=== PATIENT | female | born 1960 | race Caucasian/White ===

== ENCOUNTER → 2017-06-12 | Day surgery (SDC) | payer OTHER ==
[~2017-06-12] MED LIST: ASPIR 8181 MG; BIOTIN 800 MCG1 EACH PO; BUPIVACAINE HCL 0.5% INJ 30 ML VIAL INJ ONE; CALCIUM ACETAT667 M1 PO; CEFAZOLIN SOD 2 GM/D5W 50ML 50 ML IV ONE; CRESTOR5 MG; DEXAMETHASONE SOD PHOS INJ 4 MG/ML VIAL ONE; FENTANYL CITRATE/PF 100MCG/2 ML INJ ONE; FISH OIL 1,0001 EAC2 PO; HYDROCHLOROTHIA25 MG; KETOROLAC TROMETHAMINE 30 MG/ML VIAL ONE; LIDOCAINE HCL 2% LOCAL INJ 5 ML SDV VIAL INJ ONE; MIDAZOLAM HCL 2 MG/2 ML VIAL ONE; MIMVEY 1-0.5 M1 EACH; MORPHINE SULFATE 5 MG/ML VIAL ONE; MULTI-VITAMIN1 EACH PO; NEOSTIGMINE 1 MG/ML 10ML VIAL ONE; ONDANSETRON HCL INJ 2 MG/ML VIAL ONE; PROPOFOL IV EMULSION 10 MG/ML 20 ML VIAL ONE; SEVOFLURANE INHAL SOLN 250 ML PEN BTL ONE; VIT B12 PO; VIT D PO
--- NOTE | 2017-06-12 16:33 | Operative Report ---
DATE OF PROCEDURE: PREOPERATIVE DIAGNOSES 1. Dislocated second metatarsophalangeal joint, right foot. 2. Pain, right foot. POSTOPERATIVE DIAGNOSES 1. Dislocated second metatarsophalangeal joint, right foot. 2. Pain, right foot. PROCEDURES 1. Open reduction and internal fixation with metatarsal osteotomy of the second metatarsal, right foot. 2. Use of human allograft. 3. Excision of old hardware. PATHOLOGY: Hardware sent for pathology. ANESTHESIA: General anesthetic. HEMOSTASIS: Pneumatic ankle tourniquet at 250 mmHg. ESTIMATED BLOOD LOSS: Less than 10 mL. MATERIALS: A 12 x 12 mm screw, human allograft to promote healing and to prevent adhesions. COMPLICATIONS: None. CONDITION: Stable. PROCEDURE IN DETAIL: Under mild sedation, the patient was brought to the operating room and placed on the operating table in the supine position. Following IV sedation, anesthesia was obtained with a general anesthetic. At this point, the right foot was scrubbed, prepped and draped in the usual aseptic manner. It was then exsanguinated using with an Esmarch bandage, the pneumatic ankle tourniquet was inflated to 250 mmHg, and the leg was lowered to the table. An incision was made overlying the second metatarsophalangeal joint where the dislocation of the joint was. The incision was deepened via sharp and blunt dissection, taking care to retract all cardiovascular and neurovascular structures as necessary. At this point, the capsule was then reflected off of the second metatarsal. The metatarsophalangeal joint was then freed utilizing McGlamry elevators. Utilizing standard technique, the old hardware was removed. One of the hardware heads was broken, so the area had to be trephined to remove the second screw. When both screws were removed in toto, they were sent for pathology. The area was then flushed with copious amount of normal sterile saline solution. Second metatarsal osteotomy: At this point, the second metatarsal was then osteotomized in order to decrease the contracture of the metatarsophalangeal joint, decrease the length of metatarsal, and to have the second digit to float into a more anatomical position. Osteotomy was made through and through. The first point of fixation was a 12 x 12 mm staple. There was noted to be adequate alignment clinically with the use of intraoperative fluoroscopy. A 0.062 K-wire was then used to stabilize the second point of stabilization to prevent rotation. The area was then flushed with copious amount of normal sterile saline solution. At this point, use of human allograft was then used. Human allograft was then used overlying the capsule in order to promote healing and to prevent adhesions to the area. The extensor tendon was then lengthened in order to fully decrease the contracture. The area was then flushed again with copious amounts of normal sterile saline solution. The area was then closed with 4-0 Vicryl and 4-0 nylon. Human allograft, 1 mL, was then used injectable in order to prevent adhesion and scar at the incision since this was her second surgery to that area. The area was then dressed with sterile compressive dressing consisting of Adaptic, 4 x 4's, Kerlix and an Davin bandage. The tourniquet was deflated. There was noted to be a hyperemic response to all the digits. The patient tolerated the procedure and the anesthesia well without complications, was transported to the recovery room with vital signs stable and vascular status intact. Patient will be discharged home when she meets criteria. She was given instructions to be nonweightbearing, to ice and elevate the foot while at rest, to follow up with me in the office, and to call the office if any questions, concerns or any problems arise. Job#: [id number] JULIOCESAR
== END | disposition home or self-care (01) ==
LOC: OR 07:30
PROVIDERS: ATTEND Podiatrist Foot & Ankle Surgery
DX: M21.271 Flexion deformity, right ankle and toes (principal); M20.41 Other hammer toe(s) (acquired), right foot; S93.124A Dislocation of metatarsophalangeal joint of right lesser toe(s), initial encounter; X58.XXXA Exposure to other specified factors, initial encounter; Z01.810 Encounter for preprocedural cardiovascular examination; Z79.82 Long term (current) use of aspirin
CPT/HCPCS: 20680; 28308; 76001; 88300; 93005; J1100; J1885; J2001; J2250; J2270; J2405; J2710

== ENCOUNTER → 2017-08-21 | Day surgery (SDC) | payer OTHER ==
[2017-08-17 13:44] LABS: ANION GAP 17.6 mmol/L (8-16); BLOOD UREA NITROGEN 11 mg/dL (7-26); BUN/CREATININE RATIO 13 (6-25); CALCIUM 10.3 mg/dL (8.4-10.2); CARBON DIOXIDE 27 mmol/L (22-29); CHLORIDE 98 mmol/L (98-107); CREATININE, SERUM 0.87 mg/dL (0.57-1.11); EST GLOMERULAR FILTRATION RATE > 60 ML/MIN (60-); GLUCOSE 109 mg/dL (74-118); POTASSIUM 3.6 mmol/L (3.5-5.1); SODIUM 139 mmol/L (136-145)
[~2017-08-21] MED LIST changes: +CALCIUM MAGNES1 EAC1 PO; +IRON PO; -MORPHINE SULFATE 5 MG/ML VIAL ONE; +MUPIROCIN 2% OINT 22 GM TUBE ONE; -NEOSTIGMINE 1 MG/ML 10ML VIAL ONE; +SUPER B COMPLE150 MG PO; +ZINC PO
--- NOTE | 2017-08-21 09:00 | Operative Report ---
DATE OF PROCEDURE: August 21, 2017 [employer] HELPER: None PREOPERATIVE DIAGNOSES 1. Hammertoe, distal interphalangeal joint, left 3rd. 2. Hammertoe, distal interphalangeal joint, left 4th. POSTOPERATIVE DIAGNOSES 1. Hammertoe, distal interphalangeal joint, left 3rd. 2. Hammertoe, distal interphalangeal joint, left 4th. PROCEDURES 1. Arthrodesis, left 3rd distal interphalangeal joint. 2. Arthrodesis, left 4th distal interphalangeal joint. 3. Use of intraoperative fluoroscopy. COMPLICATIONS: None. CONDITION: Stable. MATERIALS: Two implants from [employer], small phalanx times 2. PROCEDURE IN DETAIL: Under mild sedation, the patient was brought to the operating room and placed on the operating table in the supine position. Following IV sedation, anesthesia was obtained with a general anesthetic. At this point, the left foot was scrubbed, prepped and draped in the usual aseptic manner. The leg was then lowered to the table. A pneumatic thigh tourniquet was inflated to 350 mmHg. The leg was lowered to the table. Attention was then directed to the dorsal aspect of the left 3rd where 2 semi-elliptical incisions were made overlying the DIPJ joint. The incision was deepened down to the level of the joint. At this point, the extensor tendon was then tenotomized. The joint was then visualized. The joint was then prepared for arthrodesis. A [employer] DIPJ implant was used in order to fixate the arthrodesis. There was noted to be adequate compression clinically and with the use of intraoperative fluoroscopy. Arthrodesis of left 4th. This procedure was performed in the exact maneuver as the procedure named above. All incisions were flushed with sterile saline. The incisions were then closed closing with 4-0 nylon. A clean dressing was applied consisting of Adaptic, 4 x 4's, Kerlix, and an Davin bandage. The tourniquet was deflated, and there was noted to be hyperemic response to all digits. The patient tolerated the procedure and anesthesia well without complications. Was transferred to the recovery room with vital signs stable and vascular status intact to both feet. The patient will be discharged home when she meets criteria. She was given instructions to be nonweightbearing, to ice and elevate the foot while at rest. Follow up with me in the office, and to call the office if there are any questions, concerns or any problems arise. Job#: [id number] JORDAN
== END | disposition home or self-care (01) ==
LOC: OR 05:51
PROVIDERS: ATTEND Podiatrist Foot & Ankle Surgery
DX: M20.42 Other hammer toe(s) (acquired), left foot (principal); E78.5 Hyperlipidemia, unspecified; I10 Essential (primary) hypertension; Z79.82 Long term (current) use of aspirin
CPT/HCPCS: 28285 ×2; 36415; 80048; C1713; J1100; J1885; J2001; J2250; J2405; 76000